=== PATIENT | male | born 1955 | race Caucasian/White ===

== ENCOUNTER 2021-10-15 00:57 | Day surgery (SDC) | payer BC ==
[~2021-10-15 00:57] MED LIST: CEPH500 PO; OMEP10ER PO; OMEP20ER; OXYACE5T PO
== END 2021-10-15 09:48 | disposition home or self-care (01) ==
LOC: ATC 00:57
DX: E86.0 Dehydration (principal); C77.0 Secondary and unspecified malignant neoplasm of lymph nodes of head, face and neck; Z88.5 Allergy status to narcotic agent
CPT/HCPCS: 96360; J7030

== ENCOUNTER 2021-10-16 15:20 | Day surgery (SDC) | payer BC | END 2021-10-16 16:45 | disposition home or self-care (01) | LOC: ATC 15:20 | DX: E86.0 Dehydration (principal); C80.1 Malignant (primary) neoplasm, unspecified; C77.0 Secondary and unspecified malignant neoplasm of lymph nodes of head, face and neck; Z88.5 Allergy status to narcotic agent | CPT/HCPCS: 96360; J7030 ==

== ENCOUNTER 2022-10-19 06:44 | Day surgery (SDC) | payer BC ==
[~2022-10-19] VITALS: Ht 180.3 cm; Wt 98.4 kg
[2022-10-19 08:59] VITALS: BP 123/66
== END 2022-10-19 09:04 | disposition home or self-care (01) ==
LOC: ORSCSDS 06:44
PROVIDERS: Specialist
PROC: 0DJD8ZZ Inspection of Lower Intestinal Tract, Via Natural or Artificial Opening Endoscopic (ICD-10-PCS; principal; 2022-10-19 08:00)
DX: Z12.11 Encounter for screening for malignant neoplasm of colon (principal); Z86.010 Personal history of colon polyps; Z80.0 Family history of malignant neoplasm of digestive organs; K64.8 Other hemorrhoids; K57.30 Diverticulosis of large intestine without perforation or abscess without bleeding; E78.5 Hyperlipidemia, unspecified
CPT/HCPCS: J2704; J7120

== ENCOUNTER 2023-04-10 14:40 | Emergency (ER) | payer OTHER, BC ==
[~2023-04-10] VITALS: Ht 177.8 cm; Wt 100.2 kg
[2023-04-10 14:54] VITALS: BP 158/75
== END 2023-04-10 16:04 | disposition home or self-care (01) ==
LOC: ER 14:40
DX: R51.9 Headache, unspecified (principal); Z88.5 Allergy status to narcotic agent; Z91.81 History of falling
CPT/HCPCS: 70450

== ENCOUNTER → 2024-11-14 | Outpatient (CLI) | payer BC | LOC: LAB 11:03 → LAB SHORT 11:03 | DX: R59.0 Localized enlarged lymph nodes (principal) | CPT/HCPCS: 88173 ==

== ENCOUNTER → 2024-11-26 | Outpatient (CLI) | payer BC | END | disposition home or self-care (01) | LOC: LAB SHORT 09:29 → LAB 09:29 | DX: R59.0 Localized enlarged lymph nodes (principal) | CPT/HCPCS: 88173; 88342 ==

== ENCOUNTER → 2025-01-21 | Outpatient (CLI) | payer BC | LOC: LAB SHORT 07:31 → LAB 07:31 | DX: R22.0 Localized swelling, mass and lump, head (principal) | CPT/HCPCS: 88173 ==